=== PATIENT | male | born 1950 | race Caucasian/White ===

== ENCOUNTER → 2017-05-15 | Outpatient (CLI) | payer MEDICARE, BC ==
--- NOTE | 2017-05-15 12:23 | XR ---
EXAMINATION TYPE: XR chest 2V DATE OF EXAM: 05/15/2017 COMPARISON: NONE TECHNIQUE: PA and lateral views submitted. HISTORY: Cough FINDINGS: The lungs are clear and there is no pneumothorax, pleural effusion, or focal pneumonia. Hypertrophi c change of the spine. Atherosclerotic change aorta. IMPRESSION: 1. No acute process.
== END | disposition home or self-care (01) ==
LOC: RADXRMAIN 11:56
PROVIDERS: ATTEND Internal Medicine
DX: R05 Cough (principal)
CPT/HCPCS: 71020

== ENCOUNTER → 2019-08-13 | Outpatient (CLI) | payer MEDICARE, BC ==
--- NOTE | 2019-08-13 12:32 | XR ---
EXAM TYPE: LUMBAR SPINE X RAY SERIES COMPARISON: NONE HISTORY: Chronic back pain TECHNIQUE: 4 views are submitted. FINDINGS: Alignment is anatomic. The pedicles are intact. The transverse processes are intact. Diffuse osteop enia. Postsurgical change L4-L5. Alignment is maintained. Vascular calcifications noted. Hypertrophic degenerative changes at the thoracolumbar spine. Degenerative disc disease L5-S1. IMPRESSION: 1. Diffuse osteopenia with postsurgical changes and multilevel degenerative disc disease.
== END | disposition home or self-care (01) ==
LOC: RADXRYALE 11:15
PROVIDERS: ATTEND Internal Medicine
DX: M51.37 Other intervertebral disc degeneration, lumbosacral region (principal); M85.88 Other specified disorders of bone density and structure, other site; Z98.890 Other specified postprocedural states
CPT/HCPCS: 72110

== ENCOUNTER → 2020-07-27 | Outpatient (CLI) | payer MEDICARE, BC ==
--- NOTE | 2020-07-28 09:28 | XR ---
EXAMINATION TYPE: XR chest 2V DATE OF EXAM: 07/27/2020 COMPARISON: 05/15/2017 TECHNIQUE: PA and lateral views submitted. HISTORY: Pre-MRI FINDINGS: The lungs are clear and there is no pneumothorax, pleural effusion, or focal pneumonia. Postoperati ve changes seen. Postsurgical change involving the shoulders. No diagnostic evidence of epicardial le ad. Hypertrophic and degenerative changes of the spine. IMPRESSION: 1. No acute process. No diagnostic evidence of epicardial lead.
== END | disposition home or self-care (01) ==
LOC: RADXRYALE 15:49
PROVIDERS: ATTEND Neurological Surgery
DX: Z01.818 Encounter for other preprocedural examination (principal); M47.26 Other spondylosis with radiculopathy, lumbar region
CPT/HCPCS: 71046

== ENCOUNTER → 2020-09-30 | Outpatient (CLI) | payer MEDICARE, BC ==
--- NOTE | 2020-09-30 16:26 | XR ---
Lumbar spine with flexion and extension views HISTORY: Chronic pain, status post lumbar fusion, radiculopathy 7 views of the lumbar spine submitted and correlated to prior exam 08/13/2019 Patient shows posterior lumbar fusion change as on prior exam at L4-5, there is intervertebral spacin g block. There is been interval placement of an intervertebral block at L3-4 with a side brace presen t with a screw the inferior margin of L3 on the left. Bone mineralization is reduced. There is multil evel spondylosis. Retrolisthesis grade 1 L3-4. Loss of disc height is present at L5-S1, L4-5. Scleros is in the posterior elements is likely due to facet arthropathy. There is no evident spondylolysis. N o change in the listhesis on flexion and extension views. IMPRESSION: Postop changes. Stable spondylolisthesis. Osteopenia. Facet arthropathy.
== END | disposition home or self-care (01) ==
LOC: RADXRYALE 10:42
PROVIDERS: ATTEND Neurological Surgery
DX: M43.16 Spondylolisthesis, lumbar region (principal); M47.26 Other spondylosis with radiculopathy, lumbar region; M85.88 Other specified disorders of bone density and structure, other site; I10 Essential (primary) hypertension; Z98.1 Arthrodesis status
CPT/HCPCS: 72114

== ENCOUNTER → 2020-12-16 | Outpatient (CLI) | payer MEDICARE ==
--- NOTE | 2020-12-16 11:59 | XR ---
EXAMINATION TYPE: XR chest 2V DATE OF EXAM: 12/16/2020 COMPARISON: Chest x-ray 07/27/2020 HISTORY: Cough, travel TECHNIQUE: Frontal and lateral views of the chest are obtained. FINDINGS: Patient is post median sternotomy. Aorta is dense. There is no focal air space opacity, pl eural effusion, or pneumothorax seen. The cardiac silhouette size is within normal limits. The oss eous structures are intact, there is multilevel spondylosis, postop changes are noted to the right an d left shoulder. Is elevated right hemidiaphragm. Patient is rotated. IMPRESSION: No acute cardiopulmonary process. Stable chest x-ray.
== END | disposition home or self-care (01) ==
LOC: RADXRYALE 10:48
PROVIDERS: ATTEND Internal Medicine
DX: R05 Cough (principal)
CPT/HCPCS: 71046

== ENCOUNTER → 2023-12-30 | Outpatient (CLI) | payer MEDICARE ==
--- NOTE | 2023-12-30 12:45 | XR ---
EXAMINATION TYPE: XR cervical spine comp DATE OF EXAM: 12/30/2023 COMPARISON: NONE HISTORY: Pain TECHNIQUE: Four views are submitted. FINDINGS: The odontoid is intact. There are no compression deformities. The prevertebral soft tissue structur es are within normal limits. Diffuse osteopenia. Moderate degenerative disc disease C5-C6. Multileve l moderate to advanced facet arthropathy. Multilevel foraminal encroachment. Calcifications of the so ft tissues of the neck likely related to carotid artery calcification. Additional soft tissue ossific ations. IMPRESSION: 1. Moderate to severe C5-C6 degenerative disc disease..
== END | disposition home or self-care (01) ==
LOC: RADXRYALE 11:56
PROVIDERS: ATTEND Internal Medicine
DX: M50.322 Other cervical disc degeneration at C5-C6 level (principal)
CPT/HCPCS: 72050

== ENCOUNTER → 2024-01-23 | Outpatient (CLI) | payer MEDICARE ==
--- NOTE | 2024-01-23 16:34 | MR ---
EXAMINATION TYPE: MR cervical spine wo con DATE OF EXAM: 01/23/2024 4:21 PM CLINICAL INDICATION:Male, 73 years old with history of C18.0 COLON CA; , Neck pain, numbness in hands and sore left shoulder COMPARISON: 12/30/2023 TECHNIQUE: Multi planar, multi sequence imaging was performed utilizing: T1-weighted, T2-weighted, an d turbo inversion recovery imaging of the cervical spine. IV Contrast: cc (none if empty) FINDINGS: Alignment: The cervical vertebral bodies have preserved heights. Alignment is within normal limits gi jimmy patient positioning. Bones: Osteophytes and disc space narrowing most pronounced at the C5-C7 vertebral levels. Cord: The spinal cord is unremarkable with regards to their signal intensity and morphology. Discs: Intervertebral disc signal is maintained. C2-C3: No significant disc pathology. The spinal canal is patent. Bilateral facet and uncovertebral joint arthropathy are present with mild bilateral neural foraminal stenosis. C3-C4: No significant disc pathology. The spinal canal is patent. Bilateral facet and uncovertebral joint arthropathy are present with moderate to severe bilateral neural foraminal stenosis. C4-C5: No significant disc pathology. The spinal canal is patent. Bilateral facet and uncovertebral joint arthropathy are present with moderate bilateral neural foraminal stenosis. C5-C6: No significant disc pathology. The spinal canal is patent. Bilateral facet and uncovertebral joint arthropathy are present with moderate to severe bilateral neural foraminal stenosis. C6-C7: No significant disc pathology. The spinal canal is patent. Bilateral facet and uncovertebral joint arthropathy are present with mild to moderate bilateral neural foraminal stenosis. C7-T1: No significant disc pathology. The spinal canal is patent. No neural foraminal stenosis. Other: Posterior back probable sebaceous cyst measuring up to 13 mm. IMPRESSION: 1. No evidence for disc herniation or significant spinal canal stenosis. 2. Moderate disc degeneration with associated osteoarthritic changes. With neural foraminal stenosis worse at C5-C6 with moderate to severe bilateral and C3-C4 with moderate to severe bilateral.
== END | disposition home or self-care (01) ==
LOC: RADMRIMAIN 14:49
PROVIDERS: ATTEND Specialist
DX: M99.71 Connective tissue and disc stenosis of intervertebral foramina of cervical region (principal); M47.22 Other spondylosis with radiculopathy, cervical region; M50.10 Cervical disc disorder with radiculopathy, unspecified cervical region; C18.0 Malignant neoplasm of cecum; R20.0 Anesthesia of skin
CPT/HCPCS: 72141

== ENCOUNTER → 2024-02-04 | Outpatient (CLI) | payer MEDICARE ==
[2024-02-04 16:50] LABS: Partial Thromboplastin Time 26.7 sec (22.0-30.0); Prothrombin Time 10.6 sec (10.0-12.5)
[2024-02-04 18:21] LABS: Basophils # (A) 0.06 X 10*3/uL (0.00-0.10); Basophils % (A) 0.8 %; Eosinophils % (A) 1.4 %; HCT 43.6 % (39.6-50.0); HGB 13.7 g/dL (13.0-17.0); Lymphocytes # (A) 2.46 X 10*3/uL (0.90-5.00); Lymphocytes % (A) 33.7 %; MCH 29.3 pg (27.0-32.0); MCHC 31.4 g/dL (32.0-37.0); MCV 93.2 FL (80.0-97.0); Monocytes # (A) 0.91 X 10*3/uL (0.20-1.00); Monocytes % (A) 12.4 %; NRBC Per 100 WBC 0 X 10*3/uL (0.00-0.01); Neutrophils # (A) 3.76 X 10*3/uL (1.80-7.70); Neutrophils % (A) 51.4 %; Platelet Count 317 X 10*3/uL (140-440); RBC 4.68 X 10*6/uL (4.40-5.60); RDW 15.4 % (11.5-14.5); WBC 7.31 X 10*3/uL (4.50-10.00)
[2024-02-04 18:38] LABS: ALT 14 U/L (10-49); AST 18 U/L (14-35); Albumin 4.2 g/dL (3.8-4.9); Albumin/Globulin Ratio 1.75 Ratio (1.60-3.17); Alkaline Phosphatase 115 U/L (41-126); BUN/Creat Ratio 12.62 Ratio (12.00-20.00); Blood Urea Nitrogen 10.1 mg/dL (9.0-27.0); Calcium 9.7 mg/dL (8.7-10.3); Carbon Dioxide 26.5 mmol/L (21.6-31.8); Chloride 105 mmol/L (96-109); Globulin 2.4 g/dL (1.6-3.3); Glucose 98 mg/dL (70-110); Potassium 4.5 mmol/L (3.5-5.5); Sodium 141 mmol/L (135-145); Total Bilirubin 0.4 mg/dL (0.3-1.2); Total Protein 6.6 g/dL (6.2-8.2)
[2024-02-04 21:14] LABS: Appearance,Urine Clear (Clear); Bilirubin,Urine Negative (Negative); Blood,Urine Negative (Negative); Color,Urine Yellow (Yellow); Ketones,Urine Negative (Negative); Nitrite,Urine Negative (Negative); Specific Gravity,Urine 1.016 (1.001-1.030); Urobilinogen,Urine 0.2 E.U./DL
== END | disposition home or self-care (01) ==
LOC: LABWHC1 15:50
PROVIDERS: ATTEND Neurological Surgery
DX: Z01.812 Encounter for preprocedural laboratory examination (principal); M50.120 Mid-cervical disc disorder, unspecified level
CPT/HCPCS: 36415; 80053; 81003; 83036; 85025; 85610; 85730; 87070

== ENCOUNTER → 2024-11-09 | Outpatient (CLI) | payer MEDICARE ==
--- NOTE | 2024-11-10 08:21 | XR ---
EXAMINATION TYPE: XR wrist complete 3 views RT, XR knee complete 3 views LT DATE OF EXAM: 11/09/2024 COMPARISON: NONE CLINICAL INDICATION: Male, 74 years old with history of [id number], [id number] RT WRIST PAIN, LT KNEE PAIN; FINDINGS: Right wrist: There is severe degenerative change at the first CMC joint with loss of joint space, extensive subcho ndral sclerosis and marginal spurring. Mild degenerative change triscaphe joint. Slight positive ulna r variance. Some TFC calcifications noted. Suspect subchondral geode within the lunate bone. Mid carp al compartment otherwise appears intact. No acute fracture or dislocation. Left knee: Small knee joint effusion. Some degenerative spurring in the patellofemoral compartment. Calcificatio n and suggestion of some thickening at the distal quadriceps tendon. No acute fracture, subluxation, dislocation is seen. IMPRESSION: 1. 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 Slight positive ulnar variance. Some subtl e TFC calcification may be idiopathic or could be seen with CPPD. 2. Left knee: Some degenerative spurring in the patellofemoral compartment. Small knee joint effusion . If concern for internal derangement, MRI could be considered. In addition, there is some thickening and calcification at the distal quadriceps tendon suggesting tendinopathy and sequela of prior injur y. CPPD or gout are also in the differential. [facility], , 11/10/2024 8:18 AM
== END | disposition home or self-care (01) ==
LOC: RADXRYALE 15:25
PROVIDERS: ATTEND Internal Medicine
DX: M17.12 Unilateral primary osteoarthritis, left knee (principal); M19.041 Primary osteoarthritis, right hand